=== PATIENT | male | born 1975 | race Caucasian/White ===

== ENCOUNTER 2017-05-13 13:25 | Emergency (ER) | payer OTHER ==
[2017-05-13] MEDS ORDERED: HYDROmorphone 1 MG/ML 1 ML SYRINGE IVP STA (13:40)
[2017-05-13] MEDS ORDERED: SODIUM CHLORIDE 0.9% 1,000 ML IV STA (13:40)
[2017-05-13] MEDS ORDERED: RX INFO: IV CONTRAST WAS GIVEN 1 EACH MISC MISCELLANE PRN (13:40)
[2017-05-13] MEDS ORDERED: ONDANSETRON 4 MG/2 ML VIAL IVP STA (13:40)
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
[2017-05-13 14:05] LABS: Basophils # (A) 0.1 k/uL (0-0.2); Basophils % (A) 1 %; CH 29.7; CHCM 33.7; Eosinophils # (A) 0.2 k/uL (0-0.7); Eosinophils % (A) 2 %; HCT 44.4 % (39.0-53.0); HDW 2.39; HGB 15.2 gm/dL (13.0-17.5); Luc # (Auto) 0.25; Luc % (Auto) 2; Lymphocytes # (A) 1.8 k/uL (1.0-4.8); Lymphocytes % (A) 16 %; MCH 30.2 pg (25.0-35.0); MCHC 34.2 g/dL (31.0-37.0); MCV 88.5 fL (80.0-100.0); Mean Platelet Volume 6.9; Monocytes # (A) 0.6 k/uL (0-1.0); Monocytes % (A) 5 %; Neutrophils # (A) 8.7 k/uL (1.3-7.7); Neutrophils % (A) 75 %; RBC 5.02 m/uL (4.30-5.90); RDW 12.1 % (11.5-15.5); WBC 11.5 k/uL (3.8-10.6); WBC (Perox) 12.03
[2017-05-13 14:14] LABS: ALT 57 U/L (21-72); AST 27 U/L (17-59); Alkaline Phosphatase 89 U/L (38-126); Anion Gap 8 mmol/L; Blood Urea Nitrogen 17 mg/dL (9-20); Calcium 9.1 mg/dL (8.4-10.2); Carbon Dioxide 25 mmol/L (22-30); Chloride 109 mmol/L (98-107); Glucose 90 mg/dL (74-99); Non-African American GFR(MDRD) >60 (>60 ml/min/1.73 sqM); Potassium 4.2 mmol/L (3.5-5.1); Sodium 142 mmol/L (137-145); Total Bilirubin 0.3 mg/dL (0.2-1.3); Total Protein 6.8 g/dL (6.3-8.2)
[2017-05-13 15:05] LABS: Appearance,Urine Clear (Clear); Bilirubin,Urine Negative (Negative); Glucose,Urine (UA) Negative (Negative); Ketones,Urine Negative (Negative); Leukocyte Esterase,Urine Negative (Negative); Nitrite,Urine Negative (Negative); Protein,Urine Negative (Negative); Specific Gravity,Urine 1.041 (1.001-1.035); UA Billing (MACRO vs. MICRO) CHEM; Urobilinogen,Urine <2.0 mg/dL (<2.0)
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
[2017-05-13 15:47] VITALS: BP 149/89; PULSE 69; RESP 16; TEMP 98.2
== END 2017-05-13 15:47 | disposition home or self-care (01) ==
LOC: EC 13:25
DX: S20.212A Contusion of left front wall of thorax, initial encounter (principal); M25.661 Stiffness of right knee, not elsewhere classified; M25.662 Stiffness of left knee, not elsewhere classified; I10 Essential (primary) hypertension; F17.200 Nicotine dependence, unspecified, uncomplicated; Z79.899 Other long term (current) drug therapy; Z88.5 Allergy status to narcotic agent; V43.52XA Car driver injured in collision with other type car in traffic accident, initial encounter; Y92.410 Unspecified street and highway as the place of occurrence of the external cause
CPT/HCPCS: 36415; 93005; 80053; 85025; 81003; 71260; 74177; 99285; 96374; 96375; 96361; J2405; J1170; Q9967

== ENCOUNTER → 2024-02-14 | Outpatient (CLI) | payer OTHER ==
[2024-02-14 08:23] VITALS: BP 152/99; PULSE 88; RESP 15; TEMP 98.7
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
== END ==
LOC: PNWHC3 07:53
PROVIDERS: ATTEND Specialist
DX: M54.81 Occipital neuralgia (principal); G44.86 Cervicogenic headache; F17.200 Nicotine dependence, unspecified, uncomplicated; Z88.8 Allergy status to other drugs, medicaments and biological substances
CPT/HCPCS: 99211

== ENCOUNTER 2024-03-12 09:17 | Day surgery (SDC) | payer OTHER ==
[2024-03-08 09:11] VITALS: BMI 30.7
[~2024-03-12 09:17] MED LIST: LACTATED RINGERS 1,000 ML IV SCH
[2024-03-12] MEDS ORDERED: methylPREDNISolone ACETATE 40 MG/ML 1 ML VIAL ONE (09:40)
[2024-03-12] MEDS ORDERED: ROPIVACAINE 5MG/ML 20ML VIAL ONE (09:40)
--- NOTE | 2024-03-12 09:44 | P.PCN ---
Date of Procedure: 03/12/24 Description of Procedure: Pre-operative diagnosis: occipital neuralgia Post Operative Diagnosis: occipital neuralgia Procedure: right greater occipital nerve block under ultrasound - Ultrasound used to place needle and avoid vascular structures. Anesthesia: none PROCEDURE INDICATION: The patient with neck pain and headache secondary to occipital neuralgia unresponsive to conservative treatments. PROCEDURE DESCRIPTION / TECHNIQUE: The patient was seen and identified in the preoperative area. Risks, benefits, complications, and alternatives were discussed with the patient, the patient agreed to proceed with the procedure and signed the consent. Vital signs remained stable throughout the procedure. Patient was taken to the OR and time out was completed. The patient was placed in the sitting position on the procedure table. The cervical area and occiptial area were prepped with alcohol swab. Critical pause was taken. Vital signs were closely monitored during the procedure. Right side: Ultrasound was used and the occipital artery was visualized exiting the skull about 2-3 cm lateral and 2cm inferior to the occipital protuberance On the right side. Then after negative aspiration, a 25g needed was introduced under ultrasound, negative aspiration confirmed and then 3 ml of the block solution containing 2.5 ml of PF Ropivaciane 0.5% and 40 mg of Depo-Medrol was injected after negative aspiration. Needle was withdrawn intact. Patient tolerated procedure well. No acute complications.
[2024-03-12 10:17] VITALS: BP 125/80; PULSE 57; RESP 16; TEMP 97.8
[2024-03-12 13:16] LABS: Glucose,Whole Blood 98 mg/dL (70-110)
== END 2024-03-12 10:17 | disposition home or self-care (01) ==
LOC: ORPAIN 09:17
PROVIDERS: ATTEND Hospitalist
DX: M54.81 Occipital neuralgia (principal); Z79.1 Long term (current) use of non-steroidal anti-inflammatories (NSAID); Z88.5 Allergy status to narcotic agent
CPT/HCPCS: 64405; J2795; J1010